=== PATIENT | female | born 1970 | race Caucasian/White ===

== ENCOUNTER → 2022-03-08 | Outpatient (CLI) | payer OTHER | LOC: CT 12:40 | DX: C50.912 Malignant neoplasm of unspecified site of left female breast (principal); Z12.89 Encounter for screening for malignant neoplasm of other sites; R10.84 Generalized abdominal pain; R16.1 Splenomegaly, not elsewhere classified | CPT/HCPCS: 71260; Q9967 ==

== ENCOUNTER → 2022-03-15 | Outpatient (CLI) | payer OTHER | LOC: NM 07:52 | DX: M54.50 Low back pain, unspecified (principal); M89.8X0 Other specified disorders of bone, multiple sites; D55.9 Anemia due to enzyme disorder, unspecified; R93.6 Abnormal findings on diagnostic imaging of limbs | CPT/HCPCS: 78306; A9503 ==

== ENCOUNTER → 2022-04-02 | Outpatient (CLI) | payer OTHER | LOC: RAD 13:01 | DX: R93.7 Abnormal findings on diagnostic imaging of other parts of musculoskeletal system (principal); D55.9 Anemia due to enzyme disorder, unspecified | CPT/HCPCS: 73552 ==